=== PATIENT | male | born 1980 | race Caucasian/White ===

== ENCOUNTER 2021-02-04 20:01 | Emergency (ER) | payer OTHER ==
[~2021-02-04] VITALS: Ht 170.2 cm; Wt 81.7 kg
[~2021-02-04 20:01] MED LIST: CEPHALEXIN 500500 M3 PO
[2021-02-04] MEDS ORDERED: NAFTIFINE HCL45 GM TOP ×2 (21:04→21:07)
[2021-02-04 21:18] VITALS: BP 123/77
== END 2021-02-04 21:20 | disposition home or self-care (01) ==
LOC: M.ERS 20:01
DX: B35.4 Tinea corporis (principal); J06.9 Acute upper respiratory infection, unspecified; L53.9 Erythematous condition, unspecified

== ENCOUNTER 2021-10-22 18:04 | Emergency (ER) | payer OTHER ==
[~2021-10-22] VITALS: Ht 170.2 cm; Wt 83.9 kg
[~2021-10-22 18:04] MED LIST changes: +NAFTIFINE HCL45 GM TOP
[2021-10-22 19:51] VITALS: BP 128/79
== END 2021-10-22 19:51 | disposition home or self-care (01) ==
LOC: M.ERS 18:04
DX: S62.656A Nondisplaced fracture of middle phalanx of right little finger, initial encounter for closed fracture (principal); W18.30XA Fall on same level, unspecified, initial encounter; Y93.72 Activity, wrestling; Y92.89 Other specified places as the place of occurrence of the external cause; Y99.8 Other external cause status